=== PATIENT | female | born 1975 | race Caucasian/White ===

== ENCOUNTER → 2016-10-22 | Outpatient (CLI) | payer OTHER ==
[~2016-10-22] MED LIST: CEPH500C PO; DOCU100C PO; ERGO1CAP35 PO; LEVO50TA6 PO; SERT25TA PO
[2016-10-22 10:09] LABS: BASO % 1.9 %; BASO ABS # 0.13 K/uL (0-0.2); COMPLETE YES; EOS % 0.7 %; HEMATOCRIT 40.7 % (37-47); LYMPH % 22.1 %; LYMPH ABS # 1.53 K/uL (1.2-3.4); MEAN CELL VOLUME 97.1 fL (80-100); MEAN CORPUSCULAR HEMOGLOBIN 32.7 pg (25-34); MEAN CORPUSCULAR HGB CONC 33.7 g/dl (32-36); MEAN PLATELET VOLUME 10.3 fL (7.4-10.4); MONO % 4.8 %; NEUT % 70.5 %; PLATELET COUNT 184 K/uL (130-400); RED BLOOD COUNT 4.19 M/uL (4.2-5.4); WHITE BLOOD COUNT 6.93 K/uL (4.8-10.8)
[2016-10-22 10:54] LABS: ALT/SGPT 18 U/L (12-78); AST/SGOT 17 U/L (15-37); BLOOD UREA NITROGEN 12 mg/dl (7-18); BUN/CREATININE RATIO 14.7 (10-20); CALCIUM 8.6 mg/dl (8.5-10.1); CARBON DIOXIDE 31 mmol/L (21-32); CHLORIDE 107 mmol/L (98-107); CREATININE 0.82 mg/dl (0.60-1.20); GLUCOSE 90 mg/dl (70-99); HDL CHOLESTEROL 51 mg/dl; POTASSIUM 4.3 mmol/L (3.5-5.1); SODIUM 142 mmol/L (136-145)
[2016-10-22 11:05] LABS: ALB/GLOB RATIO 0.8 (0.9-2); ALKALINE PHOSPHATASE 68 U/L (45-117); CHOLESTEROL 165 mg/dl (0-200); CHOLESTEROL/HDL RATIO 3.2; LDL CHOLESTEROL CALCULATED 98 mg/dl; TRIGLYCERIDES 82 mg/dl (0-150); VERY LOW DENSITY LIPOPROT CALC 16 mg/dl
== END | disposition home or self-care (01) ==
LOC: C.LAB1850 09:27
PROVIDERS: ATTEND Family Medicine
DX: E03.9 Hypothyroidism, unspecified (principal); Q90.9 Down syndrome, unspecified; E55.9 Vitamin D deficiency, unspecified; Z13.220 Encounter for screening for lipoid disorders

== ENCOUNTER 2016-12-03 09:46 | Emergency (ER) | payer OTHER ==
[~2016-12-03] VITALS: Ht 147.3 cm; Wt 64.1 kg
[~2016-12-03 09:46] MED LIST changes: -CEPH500C PO
[2016-12-03 09:54] VITALS: BP 99/46; PULSE 68; TEMP 36.5; O2SAT 96; Ht 147.3 cm; Wt 64.1 kg
[2016-12-03] MEDS ORDERED: CEPH500C PO (10:29)
[2016-12-03] MEDS ORDERED: CEPHALEXIN MONOHYDRATE 250 MG CAP PO ONE (10:30)
--- NOTE | 2016-12-03 16:42 | EMERGENCY ROOM VISIT NOTE ---
History Report prepared by Julia: iYng Santos Under the Supervision of: Dr. Cristopher Mancilla D.O. First contact with patient: 10:06 Chief Complaint: INFECTION Stated Complaint: RED- SWOLLEN - INFECTED LEFT INDEX FINGER Nursing Triage Summary: L index finger red swollen after manicure 1 week ago History of Present Illness The patient is a 41 year old female who presents to the Emergency Room with complaints of worsening infection to the left index finger beginning one week prior to arrival. The patient states that she was getting a manicure last week. Since then left index finger has been red and swollen. Last night the patient's mother put Neosporin on the finger. Pt denies headache, change in vision, fevers , chest pain, shortness of breath, nausea, vomiting, or tingling or numbness. She is able to open close her finger. Swelling has been increasing. Source of History: patient Onset: one week [employer] Position: finger(s) (left index) Quality: other (infection) Timing: worsening Associated Symptoms: No abdominal pain, No fevers, No headache Note: The patient is experiencing redness and swelling to left index finger. Review of Systems See HPI for pertinent positives & negatives. A total of 10 systems reviewed and were otherwise negative. Past Medical & Surgical Medical Problems: (1) Bronchitis (2) costochondritis Family History No pertinent family history Social History Smoking Status: Never Smoker Alcohol Use: none Drug Use: none Housing Status: lives with family Occupation Status: employed Current/Historical Medications Scheduled Cephalexin Monohydrate (Keflex), 500 MG PO QID Levothyroxine Sodium (Levothyroxine Sodium), 50 MCG PO DAILY Sertraline (Zoloft), 25 MG PO DAILY Allergies Coded Allergies: Penicillins (Verified Allergy, Unknown, ., 07/22/14) Physical Exam Vital Signs Date Time Temp Pulse Resp B/P Pulse Ox O2 Delivery O2 Flow Rate FiO2 12/03/16 09:54 36.5 68 18 99/46 96 Room Air Physical Exam GENERAL: alert, well appearing, well nourished, no distress, non-toxic EYE EXAM: normal conjunctiva OROPHARYNX: mucous membranes are moist LUNGS: Clear to auscultation. Normal chest wall mechanics HEART: no murmurs, S1 normal and S2 normal ABDOMEN: abdomen soft, non-tender, normo-active bowel sounds, no masses, no rebound or guarding. UPPER EXTREMITIES: Left second digit on medial aspect of nail bed with fluctuant green purulent discharge, removed following incision, erythema tracing out to DIP. LOWER EXTREMITIES: No pitting edema. NEURO EXAM: Normal sensorium Medical Decision & Procedures Medications Administered Medications (Trade) Dose Ordered Sig/Maryjo Route Start Time Stop Time Status Last Admin Dose Admin Cephalexin Monohydrate (Keflex Cap) 500 mg NOW ONCE PO 12/03/16 10:30 12/03/16 10:31 DC 12/03/16 10:35 500 MG Procedure Incision & Drainage Indication: Abscess. Location: Left second digit Verbal consent was obtained after the risks and benefits were explained, including but not limited to bleeding, scarring, infection, pain, and bone/joint /nerve damage. At this time, the risks of the procedure are less than the risks of NOT performing the procedure. A time out was taken and the correct patient and site identified. The skin was prepped with betadine and a sterile field set. The abscess cavity was entered with a number 18 gauge needle and purulent green material expressed. Debridement was not performed. Detailed wound care instructions and signs and symptoms of worsening infection reviewed with the patient. No complications and the patient tolerated the procedure well. ED Course ED COURSE: Vital signs were reviewed and showed hypotensive vitals. The patients medical record was reviewed The above diagnostic studies were performed and reviewed. ED treatments and interventions as stated above. 1010: The patient was evaluated in room C6. A complete history and physical examination was performed. 1020: See procedure note for Incision and Drainage. 1030: Keflex Cap 500 mg PO. 1033: Upon reevaluation, the patient is hemodynamically stable.I discussed my findings with the patient and she understands and agrees with the treatment plan. Based on the patients age, coexisting illnesses, exam and lab findings the decision to treat as an outpatient was made. The patient remained stable while under my care. The patient appeared well at the time of discharge. Medical Decision Differential diagnosis includes etiologies such as cellulitis, abscess, MRSA infection, DVT, necrotizing fasciitis, dermatitis, drug eruption, as well as others were entertained. Medication Reconciliation: I attest that I have personally reviewed the patient' s current medication list. The patient is a 41 year old female who presents to the ED with complaints of infection to left index finger. Patient has a paronychia that was drained with a large amount of purulent discharge. Patient has no other complaints for. Discharged with Keflex to follow-up with her primary care doctor. Discussed with parent concerning signs and symptoms to watch out for. Parent was instructed to follow up with their PCP and discussed with the parent their option to return to the ED at anytime for persistent or worsening symptoms. The appropriate anticipatory guidance and out-patient management, including indications for return to the emergency department, were explained at length to the parent and understood. Impression Primary Impression: Paronychia of finger Scribe Attestation The scribe's documentation has been prepared under my direction and personally reviewed by me in its entirety. I confirm that the note above accurately reflects all work, treatment, procedures, and medical decision making performed by me. Departure Information Dispostion Home / Self-Care Prescriptions Cephalexin Monohydrate (Keflex) 500 Mg Cap 500 MG PO QID, #28 CAP Prov: Cristopher Mancilla, DO 12/03/16 Referrals No Doctor, Assigned (PCP) Forms HOME CARE DOCUMENTATION FORM, IMPORTANT VISIT INFORMATION, WORK / SCHOOL INSTRUCTIONS Patient Instructions ED Infec Fingernail, My [facility] Additional Instructions Please follow up with your primary care doctor with in the next 24 hours. Any worsening of your symptoms, please return to the ED immediately. This includes fevers greater than 100.4, increasing redness of the digit, inability to close/ flex the digit or any other concerning signs or symptoms from your standpoint. Please soak the digit as often as possible in warm water with Betadine and when possible try to express/squeeze any purulent discharge. Please take the antibiotics as prescribed. Problem Qualifiers Primary Impression: Paronychia of finger Laterality: left Qualified Codes: L03.012 - Cellulitis of left finger
== END 2016-12-03 10:47 | disposition home or self-care (01) ==
LOC: C.EDB 09:48 → C.EDC 10:47
DX: L03.012 Cellulitis of left finger (principal); Z79.899 Other long term (current) drug therapy

== ENCOUNTER → 2017-10-04 | Outpatient (CLI) | payer OTHER ==
[~2017-10-04] MED LIST changes: -DOCU100C PO; -ERGO1CAP35 PO
--- NOTE | 2017-10-04 13:02 | MAMMOGRAPHY REPORT ---
BILATERAL DIGITAL DIAGNOSTIC MAMMOGRAM TOMOSYNTHESIS WITH CAD AND TARGETED BILATERAL ULTRASOUND: 10/04 CLINICAL HISTORY: 41-year-old woman with a history of costochondritis presents with a few month histo ry of pain in the inferior midsternal region and also the upper inner quadrant of the right breast. TECHNIQUE: Bilateral breast tomosynthesis in addition to standard 2D mammography was performed. Curre nt study was also evaluated with a Computer Aided Detection (CAD) system. COMPARISON: Comparison is made to exam dated: 05/01/2013 mammogram - [facility]. BREAST COMPOSITION: There are scattered areas of fibroglandular density in both breasts. FINDINGS: A square-shaped pain marker overlies the lower inner posterior right breast, denoting an ar ea of pain pointed out by the patient. No new suspicious mass, asymmetry, area of distortion or susp icious calcifications are identified in the right breast, with particular attention to the area of co ncern. There is a gently lobulated low density circumscribed 5 mm nodular asymmetry in the anterior subareolar left breast, best seen on the CC view, and corresponding tomosynthesis images. No associa raimundo architectural distortion or calcification. Further evaluation with ultrasound was performed. No other suspicious mass, architectural distortion or cluster of microcalcifications is seen in the lef t breast. Targeted ultrasound was performed in the inferior sternal region and also the upper inner quadrant of the right breast in the areas of pain pointed out by the patient. Sonographically normal subcutaneo us and breast tissue is identified, without a suspicious solid or cystic mass. No focal skin thicken ing appreciated. Targeted ultrasound was also performed in the periareolar and retroareolar left breast. There is a s mall oval parallel circumscribed anechoic cyst versus focal duct ectasia in the retroareolar left cherise ast measuring 3.5 x 1.8 x 4.1 mm. This corresponds with the mammographic finding and is considered b enign. IMPRESSION: ACR BI-RADS CATEGORY 2: BENIGN, TARGETED ULTRASOUND ACR BI-RADS CATEGORY 2: BENIGN 1. No new suspicious mammographic or targeted sonographic abnormalities in the areas of pain in the right upper inner quadrant or in the midsternal region. Continued clinical monitoring and clinical f ollow-up is recommended. 2. A small 5 mm nodular asymmetry in the subareolar left breast is thought to correspond with a julia gn anechoic simple cyst on ultrasound. There is no mammographic or targeted sonographic evidence of malignancy in the breasts. Recommend routine screening mammography in 1 year. These results and recommendations were discussed with the patient and her mother at the time of the e xam. Approximately 10% of breast cancers are not detected with mammography. A negative mammographic report should not delay biopsy if a clinically suggestive mass is present. Marivel Knapp M.D. ay/:10/04/2017 12:09:11 Stonemason Helper: Bettina COLEMAN(R)(M), [facility] letter sent: Normal 1/2 BI-RADS Code: ACR BI-RADS Category 2: Benign Ultrasound BI-RADS: ACR BI-RADS Category 2: Benign
== END | disposition home or self-care (01) ==
LOC: C.MAMM 10:16
PROVIDERS: ATTEND Family Medicine
DX: N64.4 Mastodynia (principal); N64.9 Disorder of breast, unspecified

== ENCOUNTER → 2018-01-27 | Outpatient (CLI) | payer OTHER ==
[2018-01-27 13:30] LABS: BASO % 1.3 %; BASO ABS # 0.07 K/uL (0-0.2); EOS % 1.3 %; EOS ABS # 0.07 K/uL (0-0.5); HEMATOCRIT 40.2 % (37-47); HEMOGLOBIN 13.3 g/dL (12.0-16.0); IG# 0.01 K/uL (0.00-0.02); LYMPH ABS # 1.58 K/uL (1.2-3.4); MEAN CELL VOLUME 96.4 fL (80-100); MEAN CORPUSCULAR HEMOGLOBIN 31.9 pg (25-34); MEAN CORPUSCULAR HGB CONC 33.1 g/dl (32-36); MEAN PLATELET VOLUME 10.8 fL (7.4-10.4); MONO % 8.8 %; MONO ABS # 0.48 K/uL (0.11-0.59); NEUT % 59.4 %; NEUT ABS # 3.24 K/uL (1.4-6.5); PLATELET COUNT 180 K/uL (130-400); RED CELL DISTRIBUTION WIDTH CV 13.9 % (11.5-14.5); RED CELL DISTRIBUTION WIDTH SD 49.2 fL (36.4-46.3); WHITE BLOOD COUNT 5.45 K/uL (4.8-10.8)
[2018-01-27 13:48] LABS: BLOOD UREA NITROGEN 10 mg/dl (7-18); CALCIUM 8.6 mg/dl (8.5-10.1); CARBON DIOXIDE 26 mmol/L (21-32); CHOLESTEROL 121 mg/dl (0-200); CREATININE 0.78 mg/dl (0.60-1.20); GLUCOSE 82 mg/dl (70-99); LDL CHOLESTEROL CALCULATED 71 mg/dl; SODIUM 140 mmol/L (136-145)
== END | disposition home or self-care (01) ==
LOC: C.LABPBG 08:58
PROVIDERS: ATTEND Family Medicine
DX: Z00.00 Encounter for general adult medical examination without abnormal findings (principal); Z13.220 Encounter for screening for lipoid disorders; Q90.9 Down syndrome, unspecified; E03.9 Hypothyroidism, unspecified